=== PATIENT | male | born 1965 | race African-American/Black ===

== ENCOUNTER → 2016-10-29 | Day surgery (SDC) | payer OTHER ==
[2016-10-29 07:04] LABS: CREATININE 0.7 mg/dL (0.7-1.2); POTASSIUM 4.1 mmol/L (3.5-5.1)
== END | disposition home or self-care (01) ==
LOC: FAS 06:43
PROVIDERS: Surgery
DX: K63.5 Polyp of colon (principal); K57.30 Diverticulosis of large intestine without perforation or abscess without bleeding; K64.2 Third degree hemorrhoids; K21.9 Gastro-esophageal reflux disease without esophagitis; E11.9 Type 2 diabetes mellitus without complications; D64.9 Anemia, unspecified; R56.9 Unspecified convulsions; E66.01 Morbid (severe) obesity due to excess calories; I10 Essential (primary) hypertension; Z88.8 Allergy status to other drugs, medicaments and biological substances; Z87.891 Personal history of nicotine dependence; Z79.899 Other long term (current) drug therapy; Z98.890 Other specified postprocedural states; Z68.43 Body mass index [BMI] 50.0-59.9, adult
CPT/HCPCS: 36415; 80048; 88305; J2704

== ENCOUNTER 2022-01-04 12:48 | Emergency (ER) | payer OTHER ==
[~2022-01-04 12:48] MED LIST: ADVAIR 100-501 EACH INH; CIPRO500 MG PO; FLOMAX0.4 MG PO; FUROSEMIDE40 MG PO; LIPITOR20 MG PO; METFORMIN HCL500 MG PO; NORCO 5-325 TA1 EACH PO; NORVASC5 MG PO; OMEPRAZOLE20 MG PO; SPIRONOLACTONE25 MG PO; TENORMIN50 MG PO; VITAMIN D35000 UNI1 PO
[2022-01-04 13:45] LABS: BASOPHIL 0.5 % (0-2); EOSINOPHIL 0.9 % (0-5); HCT 40.2 % (42.0-52.0); HGB 12.5 g/dl (13.2-18.0); LYMPHOCYTE 13.6 % (15-48); MCH 23.2 pg (25.0-31.0); MCHC 31.1 g/dL (32.0-36.0); MCV 74.7 fL (78.0-100.0); MONOCYTE 7.1 % (0-12); MPV 9.5 fL (6.0-9.5); NEUTROPHIL 77.5 % (41-80); NRBC 0; PLT 251 K/uL (150-400); RBC 5.38 M/uL (4.70-6.00); RDW 15.5 % (11.5-14.0); WBC 7.9 K/uL (4.0-10.5)
[2022-01-04 14:06] LABS: ALBUMIN 3.7 g/dL (3.4-5.0); BILIRUBIN - TOTAL 0.2 mg/dL (0.2-1.0); CREATININE 0.69 mg/dL (0.67-1.17); POTASSIUM 3.6 mmol/L (3.5-5.1); TOTAL PROTEIN 7.7 g/dL (6.4-8.2)
[2022-01-04 14:09] LABS: BILIRUBIN NEGATIVE (NEGATIVE); BLOOD 3+ Ery/uL (NEGATIVE); CLARITY CLEAR (CLEAR); COLOR YELLOW (YELLOW); GLUCOSE (U) NORMAL (NORMAL); LEUKOCYTES NEGATIVE Leu/uL (NEGATIVE); NITRITE NEGATIVE (NEGATIVE); PROTEIN NEGATIVE (NEGATIVE); SPECIFIC GRAVITY 1.025 (1.001-1.030)
== END 2022-01-04 17:02 | disposition home or self-care (01) ==
LOC: FER 12:48
PROVIDERS: Nurse Practitioner Family
DX: M25.551 Pain in right hip (principal); N20.0 Calculus of kidney; I11.0 Hypertensive heart disease with heart failure; I50.9 Heart failure, unspecified; Z88.8 Allergy status to other drugs, medicaments and biological substances
CPT/HCPCS: 36415; 73502; 80053; 81001; 85025; 87088; J7030; Q9967